=== PATIENT | female | born 1955 | race Caucasian/White ===

== ENCOUNTER 2017-08-10 10:42 | Emergency (ER) | payer BC ==
[2017-08-10 10:56] VITALS: BMI 33.5
[2017-08-10] MEDS ORDERED: NS 1000 ML 1,000 ML ONE ×2 (11:24→13:39)
--- NOTE | 2017-08-10 11:37 | DR.NAUSEAF ---
HPI - Time Seen Time seen: 11:35 - Primary Care Physician Primary Care Physician: TENNILLE MEDINA - Complaints Chief Complaint Doctors Comments: Patient admits to one episode of vomiting on yesterday and several of diarrhea. Patient has not been on antibiotics, no recent travels. Chief Complaint:: PT C/O N/V/D SINCE YESTERDAY AND SHE THINKS IT MAY BE A BLOCKAGE".. - Source History Provided: Patient - Mode of Arrival Mode of Arrival: Ambulatory - Timing Onset of Chief Complaint: 08/09/17 PMH - PMH Past Medical History: Yes Past Medical History: Angina, Anxiety, Arthritis, GERD, Hypertension, Hypothyroidism, PUD, Seizures Past Surgical History: Yes Surgical History: Cholecystectomy, Ortho Surgery, Tonsillectomy - Family History History of Family Medical Conditions: Yes Family Medical History: Cancer, [place], Coronary Artery Disease, Heart Failure, Sudden Cardiac , Hypertension - Social History Does patient currently use any type of tobacco product: No Have you used tobacco products in the last 12 months: No Type of Tobacco Use: None Does any household member use tobacco: No Alcohol Use: None Do you use any recreational Drugs:: No Lives With: Family Lives Where: Home - infectious screening In the last 2 months have you had wt loss of >10#?: NO Have you had fever, night sweats or hemotysis?: No Have you traveled outside the country in the last 6 months?: No Isolation: Standard ROS - Review of Systems Constitutional: negative: Diaphoresis Eyes: No Symptoms Reported ENTM: No Symptoms Reported Respiratoy: No Symptoms Reported Cardiovascular: No Symptoms Reported Gastrointestinal/Abdominal: Abdominal Pain, Diarrhea, Nausea, Vomiting Genitourinary: No Symptoms Reported Neurological: No Symptoms Reported Musculoskeletal: No Symptoms Reported Integumentary: No Symptoms Reported Hematologic/Lymphatic: No Symptoms Reported Endocrine: No Symptoms Reported Psychiatric: No Symptoms Reported All Other Systems: Reviewed and Negative PE - Vital Signs Vitals: Temperature 97.2 F Pulse Rate 77 Respiratory Rate 18 Blood Pressure [Left Arm] 127/59 Blood Pressure [Right Arm] 146/70 Blood Pressure 136/79 O2 Sat by Pulse Oximetry 97 - General Limitations: No Limitations General Appearance: Alert, In No Apparent Distress - Head Head Exam: Normal Inspection, Atraumatic - Eyes Eye exam: Normal Appearance, PERRL, EOMI - ENT ENT Exam: Normal Exam, Mucous Membranes Dry, Other (cap refill prolong) - Neck Neck Exam: Normal Inspection, Full ROM - Chest Chest Inspection: Normal Inspection, Symmetric Chest Wall Rise - Respiratory Respiratory Exam: Normal Lung Sounds Bilat Respiratory Exam: Bilateral Clear to Auscultation - Cardiovascular Cardiovascular Exam: Regular Rate, Normal Rhythm - Abdominal Exam Abdominal Exam: Normal Inspection Abdominal Tenderness: negative: RUQ, RLQ, LUQ, LLQ, Epigastrium, Suprapubic, Diffuse, Mild, Moderate, Severe, Other - Rectal Rectal Exam: Deferred - External Exam: Female: Deferred : Speculum Exam (Female): Deferred : Bimanual Exam (female): Normal Bimanual exam - Extremities Extremities Exam: Normal Inspection, Full ROM - Back Back Exam: Normal Inspection - Neurologic Neurological Exam: Alert, Oriented X3, CN II-XII Intact - Psychiatric Psychiatric Exam: Normal Affect, Normal Mood - Skin Skin Exam: Warm, Dry, Intact Course - Reevaluation 1st: Improved - Education/Counseling Educated On: Treatment, Diagnosis, Prognosis, Needs for Follow Up ROR - Labs Reviewed Result Diagrams: 08/10/17 11:30 08/10/17 11:30 Laboratory: WBC 5.5 X10^3/uL (3.6-10.0) 08/10/17 11:30 RBC 4.61 X10^6/uL (3.5-5.4) 08/10/17 11:30 Hgb 15.0 g/dL (12.0-16.0) 08/10/17 11:30 Hct 43.1 % (36.0-47.0) 08/10/17 11:30 MCV 93.5 fL (80.0-100.0) 08/10/17 11:30 MCH 32.6 pg (27.0-34.0) 08/10/17 11:30 MCHC 34.8 g/dL (33.0-35.0) 08/10/17 11:30 RDW 13.4 % (11.6-16.5) 08/10/17 11:30 Plt Count 205 X10^3/uL (150.0-450.0) 08/10/17 11:30 MPV 8.8 fL (7.4-11.0) 08/10/17 11:30 Neut % 63.9 % (42.0-75.0) 08/10/17 11:30 Lymph % 19.2 % (21.0-51.0) L 08/10/17 11:30 [place] % 12.1 % (0.0-13.0) 08/10/17 11:30 Eos % 4.4 % (0.9-2.9) H 08/10/17 11:30 Baso % 0.4 % (0.2-1.0) 08/10/17 11:30 Neut # 3.5 x10^3/uL (2.2-4.8) 08/10/17 11:30 Lymph # 1.1 X10^3/uL (1.3-2.9) L 08/10/17 11:30 [place] # 0.7 x10^3/uL (0.3-0.8) 08/10/17 11:30 Eos # 0.2 x10^3/uL (0.0-0.2) 08/10/17 11:30 Baso # 0.0 X10^3/uL (0.0-0.1) 08/10/17 11:30 Absolute Nucleated RBC 0.0 /100WBC 08/10/17 11:30 Sodium 135 mmol/L (136-145) L 08/10/17 11:30 Corrected Sodium TNP 08/10/17 11:30 Potassium 3.2 mmol/L (3.5-5.1) L 08/10/17 11:30 Chloride 102 mmol/L (98-107) 08/10/17 11:30 Carbon Dioxide 24.4 mmol/L (21-32) 08/10/17 11:30 BUN 24 mg/dL (7-18) H 08/10/17 11:30 Creatinine 1.28 mg/dL (0.55-1.02) H 08/10/17 11:30 Est GFR (MDRD) Af Amer 54 (>60) L 08/10/17 11:30 Est GFR (MDRD) Non-Af 45 (>60) L 08/10/17 11:30 Glucose 96 mg/dL (65-99) 08/10/17 11:30 Calcium 8.7 mg/dL (8.5-10.1) 08/10/17 11:30 Corrected Calcium TNP 08/10/17 11:30 Total Bilirubin 0.80 mg/dL (0.2-1.0) 08/10/17 11:30 AST 20 Units/L (15-37) 08/10/17 11:30 ALT 24 Units/L (12-78) 08/10/17 11:30 Alkaline Phosphatase 97 Units/L (46-116) 08/10/17 11:30 Total Protein 7.6 g/dL (6.4-8.2) 08/10/17 11:30 Albumin 3.6 g/dL (3.4-5.0) 08/10/17 11:30 Globulin 4.0 g/dL (2.5-4.5) 08/10/17 11:30 Albumin/Globulin Ratio 0.9 Ratio (1.1-2.1) L 08/10/17 11:30 Specimen Type Clean catch urine 08/10/17 12:30 Urine Color Yellow (YELLOW) 08/10/17 12:30 Urine Appearance Clear (CLEAR) 08/10/17 12:30 Urine pH 6.5 (5.0 - 8.0) 08/10/17 12:30 Ur Specific [place] 1.005 (1.000-1.030) 08/10/17 12:30 Urine Protein Negative (NEGATIVE) 08/10/17 12:30 Urine Glucose (UA) Negative (NEGATIVE) 08/10/17 12:30 Urine Ketones Negative (NEGATIVE) 08/10/17 12:30 Urine Occult Blood Negative (NEGATIVE) 08/10/17 12:30 Urine Nitrite Negative (NEGATIVE) 08/10/17 12:30 Urine Bilirubin Negative (NEGATIVE) 08/10/17 12:30 Urine Urobilinogen Normal (NORMAL) 08/10/17 12:30 Ur Leukocyte Esterase Negative (NEGATIVE) 08/10/17 12:30 Urine RBC Rare /HPF (NEGATIVE) 08/10/17 12:30 Urine WBC Rare /HPF (NEGATIVE) 08/10/17 12:30 Ur Squamous Epith Cells Few /HPF (NEGATIVE) 08/10/17 12:30 Ur Renal Epithelial Cell Rare /HPF (NEGATIVE) 08/10/17 12:30 Amorphous Sediment Trace /HPF (NEGATIVE) 08/10/17 12:30 Urine Bacteria Negative /HPF (NEGATIVE) 08/10/17 12:30 Ur Culture Indicated? No/not indicated 08/10/17 12:30 - XRAY XRAY Interpreted by: Radiologist (Acute Abd Series: Cardiomediastinal silhouette is normal in size. No focal consolidations, pleural effusions or pneumothorax. Osseous structures are without acute abormality. Flat and Upright views of the abdomen demonstrates a pattern most consistent with enteritis. No evidience of obstruction. No free air. No abnormal calcifications or abnormal soft tissue shadows. No acute bony abnormalities. Impression: No acute cardiopulmonary disease. Bowel gas pattern most consistent with enteritis.) - Diagnosis Discharge Problem: Diarrhea in adult patient, Enteritis, Hypokalemia - Discharge Plan Condition: Stable - Follow ups/Referrals Follow ups/Referrals: Son Soto [Primary Care Provider] - 3 days - Instructions
[2017-08-10] MEDS ORDERED: NS 1000 ML 1,000 ML IV ONE ×2 (11:38→13:47)
[2017-08-10 11:54] LABS: BASOPHILS % (AUTO) 0.4 % (0.2-1.0); EOSINOPHILS # (AUTO) 0.2 x10^3/uL (0.0-0.2); EOSINOPHILS % (AUTO) 4.4 % (0.9-2.9); HEMATOCRIT 43.1 % (36.0-47.0); LYMPHOCYTES # (AUTO) 1.1 X10^3/uL (1.3-2.9); LYMPHOCYTES % (AUTO) 19.2 % (21.0-51.0); MEAN CORPUSCULAR HEMOGLOBIN 32.6 pg (27.0-34.0); MEAN CORPUSCULAR HGB CONC 34.8 g/dL (33.0-35.0); MEAN CORPUSCULAR VOLUME 93.5 fL (80.0-100.0); MEAN PLATELET VOLUME 8.8 fL (7.4-11.0); MONOCYTES # (AUTO) 0.7 x10^3/uL (0.3-0.8); MONOCYTES % (AUTO) 12.1 % (0.0-13.0); NEUTROPHILS # (AUTO) 3.5 x10^3/uL (2.2-4.8); NEUTROPHILS % (AUTO) 63.9 % (42.0-75.0); PLATELET COUNT 205 X10^3/uL (150.0-450.0); RED BLOOD COUNT 4.61 X10^6/uL (3.5-5.4); RED CELL DISTRIBUTION WIDTH 13.4 % (11.6-16.5); WHITE BLOOD COUNT 5.5 X10^3/uL (3.6-10.0)
[2017-08-10 12:05] LABS: ALANINE AMINOTRANSFERASE 24 Units/L (12-78); ALBUMIN 3.6 g/dL (3.4-5.0); ALKALINE PHOSPHATASE 97 Units/L (46-116); ASPARTATE AMINO TRANSFERASE 20 Units/L (15-37); BLOOD UREA NITROGEN 24 mg/dL (7-18); CALCIUM 8.7 mg/dL (8.5-10.1); CARBON DIOXIDE 24.4 mmol/L (21-32); CHLORIDE 102 mmol/L (98-107); CREATININE 1.28 mg/dL (0.55-1.02); SODIUM 135 mmol/L (136-145); TOTAL PROTEIN 7.6 g/dL (6.4-8.2); eGFR BLACK RACES 54 (>60); eGFR NON BLACK RACES 45 (>60)
[2017-08-10] MEDS ORDERED: K-LYTE EFFERVESCENT ONE (12:40)
[2017-08-10] MEDS ORDERED: K-LYTE EFFERVESCENT PO SCH (13:00)
[2017-08-10 13:06] LABS: APPEARANCE,URINE CLEAR (CLEAR); COLOR,URINE YELLOW (YELLOW); GLUCOSE, URINE NEGATIVE (NEGATIVE); PH,URINE 6.5 (5.0 - 8.0); PROTEIN,URINE NEGATIVE (NEGATIVE)
[2017-08-10 13:07] LABS: BILIRUBIN,URINE NEGATIVE (NEGATIVE); BLOOD/HEMOGLOBIN,URINE NEGATIVE (NEGATIVE); KETONES,URINE NEGATIVE (NEGATIVE); LEUKOCYTE ESTERASE ,URINE NEGATIVE (NEGATIVE); NITRITES,URINE NEGATIVE (NEGATIVE); UROBILINOGEN,URINE NORMAL (NORMAL)
[2017-08-10 13:19] LABS: AMORPHOUS SEDIMENT,UR TRACE /HPF (NEGATIVE); BACTERIA,URINE NEGATIVE /HPF (NEGATIVE); RBC,URINE RARE /HPF (NEGATIVE); RENAL EPITHELIAL CELLS,URINE RARE /HPF (NEGATIVE); SQUAMOUS EPITHELIAL CELL,UR FEW /HPF (NEGATIVE)
--- NOTE | 2017-08-10 13:22 | RAD ---
HISTORY: Vomiting and diarrhea Study: Frontal view of the chest, flat and upright views of the abdomen Comparison: None Findings: Cardiomediastinal silhouette is normal in size. No focal consolidations, pleural effusions or pneumot horax. Osseous structures are without acute abnormality. Flat and upright views of the abdomen demonstrates a pattern most consistent with enteritis. No evide nce of obstruction. No free air. No abnormal calcifications or abnormal soft tissue shadows. No acu te bony abnormalities. IMPRESSION: 1. No acute cardiopulmonary disease. 2. Bowel gas pattern most consistent with enteritis. Reported By:
[2017-08-10 14:08] VITALS: BP 126/75
[2017-08-10 14:12] LABS: STOOL FOR WBC NEGATIVE (NEGATIVE)
== END 2017-08-10 14:40 | disposition home or self-care (01) ==
LOC: ER 10:51
DX: K52.89 Other specified noninfective gastroenteritis and colitis (principal); R19.7 Diarrhea, unspecified; E87.6 Hypokalemia
CPT/HCPCS: 36415; 74022; 80053; 81001; 83630; 85025; 96365; 96367; 99283; A4222

== ENCOUNTER 2021-03-06 11:56 | Inpatient (IN) ==
[2021-03-06] MEDS ORDERED: NS 500 ML IV 500 ML IV ONE (12:58)
[2021-03-06 13:35] LABS: BASOPHILS % (AUTO) 0.4 % (0.2-1.0); EOSINOPHILS % (AUTO) 0.1 % (0.9-2.9); HEMATOCRIT 37.7 % (36.0-47.0); HEMOGLOBIN 13.4 g/dL (12.0-16.0); LYMPHOCYTES # (AUTO) 0.6 X10^3/uL (1.3-2.9); LYMPHOCYTES % (AUTO) 10.1 % (21.0-51.0); MEAN CORPUSCULAR HEMOGLOBIN 32.7 pg (27.0-34.0); MEAN CORPUSCULAR HGB CONC 35.4 g/dL (33.0-35.0); MEAN CORPUSCULAR VOLUME 92.5 fL (80.0-100.0); MEAN PLATELET VOLUME 8.3 fL (7.4-11.0); MONOCYTES # (AUTO) 0.5 x10^3/uL (0.3-0.8); MONOCYTES % (AUTO) 8.2 % (0.0-13.0); NEUTROPHILS # (AUTO) 5.1 x10^3/uL (2.2-4.8); NEUTROPHILS % (AUTO) 81.2 % (42.0-75.0); PLATELET COUNT 207 X10^3/uL (150.0-450.0); RED BLOOD COUNT 4.08 X10^6/uL (3.5-5.4); RED CELL DISTRIBUTION WIDTH 13.3 % (11.6-16.5); WHITE BLOOD COUNT 6.3 X10^3/uL (3.6-10.0)
[2021-03-06 13:47] LABS: ALBUMIN 2.9 g/dL (3.4-5.0); CALCIUM 8.5 mg/dL (8.5-10.1); CARBON DIOXIDE 21.5 mmol/L (21-32); COR CA(FOR HYPOALB) 9.4 mg/dL (8.5-10.1); CREATININE 2.37 mg/dL (0.55-1.02); MAGNESIUM 1.9 mg/dL (1.7-2.9); TOTAL PROTEIN 7.1 g/dL (6.4-8.2)
[2021-03-06] MEDS ORDERED: POTASSIUM CHL 40 MEQ/NS 0.45% 500 ML IV PRN (13:51)
[2021-03-06] MEDS ORDERED: KLOR-CON PO PRN (13:51)
[2021-03-06] MEDS ORDERED: POTASSIUM CHL 60 MEQ/NS 0.45% 500 ML IV PRN (13:51)
[2021-03-06] MEDS ORDERED: K-DUR TAB 20 MEQ PO PRN (13:51)
[2021-03-06] MEDS ORDERED: K-RIDER 10 MEQ/NS 100 ML 10 MEQ/100 ML BAG IV PRN (13:51)
[2021-03-06] MEDS ORDERED: MAGNESIUM SULFATE 1 GRAM/100 mL PREMIX 1 GM/100 ML BAG IV PRN (13:51)
[2021-03-06] MEDS ORDERED: MICRO K EXTEN CAP 10 MEQ PO PRN (13:51)
[2021-03-06] MEDS: NS 1000 ML 1,000 ML IV SCH ×2 (14:32→22:10)
[2021-03-06 14:33] LABS: CRYPTOSPORIDIUM PARVUM ANTIGEN NEGATIVE (NEGATIVE); GIARDIA LAMBLIA ANTIGEN NEGATIVE (NEGATIVE)
[2021-03-06] MEDS: POTASSIUM CHLORIDE LIQ 20 MEQ UDC PO PRN (15:41)
[2021-03-06] MEDS: BUTT CREAM (COMPOUND) TOP PRN (20:37)
[2021-03-06] MEDS ORDERED: TYLENOL 325 MG TAB PO PRN (20:38)
[2021-03-07] MEDS: NS 1000 ML 1,000 ML IV SCH ×2 (05:05→13:45)
[2021-03-07 05:18] LABS: BASOPHILS % (AUTO) 0.7 % (0.2-1.0); EOSINOPHILS % (AUTO) 0.3 % (0.9-2.9); HEMATOCRIT 34.3 % (36.0-47.0); HEMOGLOBIN 12.1 g/dL (12.0-16.0); LYMPHOCYTES # (AUTO) 0.9 X10^3/uL (1.3-2.9); LYMPHOCYTES % (AUTO) 15.7 % (21.0-51.0); MEAN CORPUSCULAR HEMOGLOBIN 32.7 pg (27.0-34.0); MEAN CORPUSCULAR HGB CONC 35.1 g/dL (33.0-35.0); MEAN CORPUSCULAR VOLUME 93.1 fL (80.0-100.0); MEAN PLATELET VOLUME 9.1 fL (7.4-11.0); MONOCYTES # (AUTO) 0.8 x10^3/uL (0.3-0.8); MONOCYTES % (AUTO) 13.2 % (0.0-13.0); NEUTROPHILS # (AUTO) 4.2 x10^3/uL (2.2-4.8); NEUTROPHILS % (AUTO) 70.1 % (42.0-75.0); PLATELET COUNT 194 X10^3/uL (150.0-450.0); RED BLOOD COUNT 3.69 X10^6/uL (3.5-5.4); RED CELL DISTRIBUTION WIDTH 13.4 % (11.6-16.5)
[2021-03-07 05:24] LABS: ALANINE AMINOTRANSFERASE 22 Units/L (12-78); ALBUMIN 2.3 g/dL (3.4-5.0); ALKALINE PHOSPHATASE 59 Units/L (46-116); ASPARTATE AMINO TRANSFERASE 29 Units/L (15-37); BLOOD UREA NITROGEN 30 mg/dL (7-18); CALCIUM 8.3 mg/dL (8.5-10.1); CHLORIDE 106 mmol/L (98-107); COR CA(FOR HYPOALB) 9.7 mg/dL (8.5-10.1); CREATININE 1.51 mg/dL (0.55-1.02); SODIUM 138 mmol/L (136-145); eGFR NON BLACK RACES 37 (>60)
[2021-03-07] MEDS: BUTT CREAM (COMPOUND) TOP PRN (09:50)
[2021-03-07] MEDS ORDERED: LOMOTIL PO PRN (10:26)
[2021-03-07] MEDS ORDERED: NS 1000 ML 0 ML ONE (13:48)
[2021-03-07] MEDS: NS + KCL 20 MEQ/L 1,000 ML IV SCH ×2 (13:50→23:23)
[2021-03-07 16:04] VITALS: BMI 30.4
--- NOTE | 2021-03-07 18:29 | DR.CONSULT ---
Consult - Consultation for Day of: Date: 03/07/21 - Chief Complaint Chief Complaint: intractable nausea, vomiting adn diarrhea - History of Present Illness History of Present Illness: Patient referred for intractable nausea, vomiting and diarrhea. Patient with complaints of dyspepsia, nausea, vomiting last on friday, abdominal pain, and diarrhea for the last 5 days. Last colon 3 years ago in [place] with polyps, unsure of last EGD. Patient noted with diffuse abdominal tenderness. Stool positive for C-Diff and blood, Hgb 12.1, Hct 34.3, Plt 194, BUN 30, Creatinien 1.5, T. Bili 0.7, AST 29, aLT 22, ALP 59 - Past Medical History Past Medical History: Angina, Anxiety, Arthritis, GERD, Hypertension, Hypothyroidism, PUD, Seizures Additional Medical History: Hepatitis C, Diverticulosis, Constipation, Urinary Tract Infections - Past Surgical History Surgical History: Cholecystectomy, Ortho Surgery, Tonsillectomy - Family History Family Medical History: Cancer, [place], Coronary Artery Disease, Heart Failure, Sudden Cardiac , Hypertension - Social History Does any household member use tobacco: No Alcohol Use: None Drug Use: None - Medications Home Medications: meperidine [From Demerol] Adverse Reaction (Verified 11/06/20 08:09) CONFUSION CONTINUE taking the following medications hydrochlorothiazide 12.5 mg PO DAILY 03/06/21 [History] levothyroxine 25 mcg PO DAILY 03/06/21 [History] losartan 50 mg PO DAILY 03/06/21 [History] rabeprazole 20 mg PO BID 03/06/21 [History] temazepam 30 mg PO HS 03/06/21 [History] tizanidine 4 mg PO HS 03/06/21 [History] - Review of Systems Gastrointestinal: See HPI, Nausea, Vomiting, Abdominal Pain, Diarrhea. denies: Constipation, Melena, Hematochezia - Physical Exam Vital Signs: Temperature 98.8 F Pulse Rate [Left Brachial] 60 Respiratory Rate 20 Blood Pressure [Left Arm] 143/67 Blood Pressure [Right Arm] 126/75 Blood Pressure 157/73 O2 Sat by Pulse Oximetry 99 Oriented: Normal Eyes: Normal Ear: Normal Nose: Normal Throat: Normal Respiratory: Clear Throughout Cardiovascular: Normal Auscultation: Bowel Sounds: Normal Palpation: Normal, Other (no distention). negative: Spleen Enlarged, Liver Enlarged, Mass Pulsatile Tenderness: Diffuse Skin: Normal Musculoskeletal: Normal Psychiatric: Normal Mood Description: Calm, Appropriate Affect: Normal Speech Pattern: Clear, Appropriate - Plan Plan: Assessment. 1. Nausea, vomiting, abdominal pain. 2. C-Diff Colitis. Plan. 1. Zofran PRN, EGD in am. 2. Flagyl 500mg PO TID. Plan reviewed with Dr. Burgos - Allergies Allergies/Adverse Reactions: Allergies Allergy/AdvReac Type Severity Reaction Status Date / Time meperidine [From Demerol] AdvReac CONFUSION Verified 11/06/20 08:09
--- NOTE | 2021-03-07 18:55 | DR.H&P ---
H&P - History & Physical for Day of: H&P Date: 03/06/21 - Chief Complaint Chief Complaint: DIARRHEA, NAUSEA, VOMITING - History of Present Illness History of Present Illness: IS A 65 YEAR OLD PATIENT OF OURS WHO PRESENTED TO THE OFFICE WITH COMPLAINTS OF DIARRHEA, NAUSEA, AND VOMITING. SHE REPORTS THAT SYMPTOMS STARTED 5-6 DAYS AGO AND HAVE PROGRESSIVELY GOTTEN WORSE. SHE REPORTS HAVING 8-10 BOWEL MOVEMENTS PER DAY. SHE ADMITS TO ABDOMINAL CRAMPING AND FEVER. HER PMH INCLUDES: HTN, HEPATITIS, HYPOTHYROIDISM, GERD. DECISION WAS MADE TO ADMIT PATIENT TO THE HOSPITAL FOR FURTHER EVALUATION AND TREATMENT OF DEHYDRATION, GASTRITIS, AND INTRACTABLE DIARRHEA. ON ARRIVAL TO THE HOSPITAL, VITALS WERE 99.1-69-18-95%-102/51. LABS WERE OBTAINED. ABNORMAL LAB VALUES INCLUDE THE FOLLOWING: POTASSIUM 2.8, BUN 35, CREATININE 2.37, GLUCOSE 114, ALBUMIN 2.9, AMYLASE 18, LIPASE 50. STOOL STUDIES WERE POSITIVE FOR OCCULT BLOOD, WBC. C.DIFF TOXIN B GENE WAS POSITIVE, BUT NEGATIVE FOR ACUTE INFECTION. STOOL CULTURE IS PENDING. SHE WAS GIVEN A NORMAL SALINE BOLUS X 2 LITERS, THEN STARTED ON NS AT 100 ML/HR, LOMOTIL 1 TAB PO QID PRN, THE POTASSIUM AND MAGNESIUM PROTOCOLS, TYLENOL 650MG PO Q6H PRN. WE WILL REVIEW HER HOME MEDICATIONS AND RESUME APPROPRIATE. WE WILL CONSULT WITH , POLISHER AND BUFFER FOR POSSIBLE ENDOSCOPY. OTHERWISE, WE PLAN TO FOLLOW UP WITH AM LABS AND CONTINUE TO MONITOR. TIME SPENT ON CLINICAL ASSESSMENT, REVIEWING LABS AND IMAGING, DECISION MAKING, AND DOCUMENTATION GREATER THAN 75 MINS. - Past Medical History Past Medical History: Angina, Anxiety, Arthritis, GERD, Hypertension, Hypothyroidism, PUD, Seizures Additional Medical History: Hepatitis C, Diverticulosis, Constipation, Urinary Tract Infections - Past Surgical History Surgical History: Cholecystectomy, Ortho Surgery, Tonsillectomy - Family History Family Medical History: Cancer, [place], Coronary Artery Disease, Heart Failure, Sudden Cardiac , Hypertension - Social History Does any household member use tobacco: No Alcohol Use: None Drug Use: None - Medications Home Medications: meperidine [From Demerol] Adverse Reaction (Verified 11/06/20 08:09) CONFUSION CONTINUE taking the following medications hydrochlorothiazide 12.5 mg PO DAILY 03/06/21 [History] levothyroxine 25 mcg PO DAILY 03/06/21 [History] losartan 50 mg PO DAILY 03/06/21 [History] rabeprazole 20 mg PO BID 03/06/21 [History] temazepam 30 mg PO HS 03/06/21 [History] tizanidine 4 mg PO HS 03/06/21 [History] - Physical Exam Vital Signs: Temperature 98.8 F Pulse Rate [Left Brachial] 60 Respiratory Rate 20 Blood Pressure [Left Arm] 143/67 Blood Pressure [Right Arm] 126/75 Blood Pressure 157/73 O2 Sat by Pulse Oximetry 99 Oriented: Normal - Allergies Allergies/Adverse Reactions: Allergies Allergy/AdvReac Type Severity Reaction Status Date / Time meperidine [From Demerol] AdvReac CONFUSION Verified 11/06/20 08:09
[2021-03-07] MEDS: FLAGYL TAB 500 MG PO SCH (21:21)
[2021-03-08] MEDS: NS + KCL 20 MEQ/L 1,000 ML IV SCH ×3 (03:58→20:30)
[2021-03-08] MEDS: FLAGYL TAB 500 MG PO SCH ×3 (05:20→21:33)
[2021-03-08 06:15] LABS: BASOPHILS % (AUTO) 0.5 % (0.2-1.0); EOSINOPHILS # (AUTO) 0.1 x10^3/uL (0.0-0.2); EOSINOPHILS % (AUTO) 1.1 % (0.9-2.9); HEMOGLOBIN 12.1 g/dL (12.0-16.0); LYMPHOCYTES # (AUTO) 0.9 X10^3/uL (1.3-2.9); MEAN CORPUSCULAR HEMOGLOBIN 33.2 pg (27.0-34.0); MEAN CORPUSCULAR HGB CONC 35.5 g/dL (33.0-35.0); MEAN CORPUSCULAR VOLUME 93.5 fL (80.0-100.0); MEAN PLATELET VOLUME 8.9 fL (7.4-11.0); MONOCYTES # (AUTO) 1.1 x10^3/uL (0.3-0.8); MONOCYTES % (AUTO) 17.5 % (0.0-13.0); NEUTROPHILS # (AUTO) 4.3 x10^3/uL (2.2-4.8); NEUTROPHILS % (AUTO) 66.9 % (42.0-75.0); PLATELET COUNT 194 X10^3/uL (150.0-450.0); RED BLOOD COUNT 3.63 X10^6/uL (3.5-5.4); RED CELL DISTRIBUTION WIDTH 13.3 % (11.6-16.5); WHITE BLOOD COUNT 6.4 X10^3/uL (3.6-10.0)
[2021-03-08 06:55] LABS: ALBUMIN 2.3 g/dL (3.4-5.0); ALKALINE PHOSPHATASE 74 Units/L (46-116); ASPARTATE AMINO TRANSFERASE 66 Units/L (15-37); BLOOD UREA NITROGEN 15 mg/dL (7-18); CALCIUM 8.2 mg/dL (8.5-10.1); CARBON DIOXIDE 19.5 mmol/L (21-32); CHLORIDE 109 mmol/L (98-107); COR CA(FOR HYPOALB) 9.6 mg/dL (8.5-10.1); CREATININE 1.05 mg/dL (0.55-1.02); SODIUM 139 mmol/L (136-145); TOTAL PROTEIN 5.9 g/dL (6.4-8.2); eGFR NON BLACK RACES 56 (>60)
[2021-03-08 07:10] LABS: ALANINE AMINOTRANSFERASE 46 Units/L (12-78)
[2021-03-08] MEDS: VSL#3 PO SCH (11:16)
[2021-03-08] MEDS: ROCEPHIN VIAL 1 GRAM 1 G in NS 100 ML IV + SPIKE MINIBAG* 100 ML IV SCH (11:16)
[2021-03-08] MEDS ORDERED: XANAX PO PRN (17:17)
--- NOTE | 2021-03-08 19:51 | PCM.PROG ---
Progress Note - Progress Note for Day of Date of Exam: 03/08/21 - Subjective Subjective: the patient is a 65-year-old white female who was admitted on 03/06/21 secondary to dehydration and diarrhea. States the diarrhea started on Friday. Patient continues to have some nausea. Denies any vomiting. Patient has C Diff toxin history. Is currently on Flagyl. Salmonella screening is positive. Rocephin added. Patient has received supplementation for hypokalemia. Rectal tube is intact. Patient is scheduled for EGD today. Patient does admit to feeling weak with no energy. - Past Medical Family Social History Past Med/Fam/Surg Hx: No changes since H&P Allergies: Allergies meperidine [From Demerol] Adverse Reaction (Verified 11/06/20 08:09) CONFUSION patient states she becomes combative - Review of Systems ROS: No change since H&P - Vital Signs and I&O's Vital Signs: Temperature 97.6 F Pulse Rate [Left Brachial] 61 Respiratory Rate 20 Blood Pressure [Left Arm] 108/53 Blood Pressure [Right Arm] 126/75 Blood Pressure 157/73 O2 Sat by Pulse Oximetry 99 Intake and Output: Intake & Output 03/05/21 03/06/21 03/07/21 03/08/21 23:59 23:59 23:59 23:59 Intake Total 1080 / 1080 3543 / 3543 1060 / 1060 Output Total 1500 / 1500 1200 / 1200 Balance 1080 / 1080 2043 / 2043 -140 / -140 - Physical Exam Oriented: Normal Eyes: Normal Ear: Normal Nose: Normal Throat: Normal Cardiovascular: Normal : Normal Auscultation: Bowel Sounds: Increased Palpation: Normal Tenderness: Diffuse, Other (rectal tube with green liquid) Skin: Normal Musculoskeletal: Normal Psychiatric: Normal Mood Description: Calm, Appropriate Affect: Normal Speech Pattern: Clear, Appropriate - Laboratory and Diagnostics Result Diagrams: 03/08/21 04:40 03/08/21 04:40 Labs: 03/06/21 13:06 Stool Stool Culture - Final Salmonella Species 03/06/21 13:06 Stool - Final Laboratory WBC 6.4 X10^3/uL (3.6-10.0) 03/08/21 04:40 RBC 3.63 X10^6/uL (3.5-5.4) 03/08/21 04:40 Hgb 12.1 g/dL (12.0-16.0) 03/08/21 04:40 Hct 34.0 % (36.0-47.0) L 03/08/21 04:40 MCV 93.5 fL (80.0-100.0) 03/08/21 04:40 MCH 33.2 pg (27.0-34.0) 03/08/21 04:40 MCHC 35.5 g/dL (33.0-35.0) H 03/08/21 04:40 RDW 13.3 % (11.6-16.5) 03/08/21 04:40 Plt Count 194 X10^3/uL (150.0-450.0) 03/08/21 04:40 MPV 8.9 fL (7.4-11.0) 03/08/21 04:40 Neut % (Auto) 66.9 % (42.0-75.0) 03/08/21 04:40 Lymph % (Auto) 14.0 % (21.0-51.0) L 03/08/21 04:40 [place] % (Auto) 17.5 % (0.0-13.0) H 03/08/21 04:40 Eos % (Auto) 1.1 % (0.9-2.9) 03/08/21 04:40 Baso % (Auto) 0.5 % (0.2-1.0) 03/08/21 04:40 Neut # (Auto) 4.3 x10^3/uL (2.2-4.8) 03/08/21 04:40 Lymph # (Auto) 0.9 X10^3/uL (1.3-2.9) L 03/08/21 04:40 [place] # (Auto) 1.1 x10^3/uL (0.3-0.8) H 03/08/21 04:40 Eos # (Auto) 0.1 x10^3/uL (0.0-0.2) 03/08/21 04:40 Baso # (Auto) 0.0 X10^3/uL (0.0-0.1) 03/08/21 04:40 Absolute Nucleated RBC 0.0 /100WBC 03/08/21 04:40 ESR 14 MM/HOUR (0-20) 03/07/21 14:45 Sodium 139 mmol/L (136-145) 03/08/21 04:40 Corrected Sodium TNP 03/08/21 04:40 Potassium 3.2 mmol/L (3.5-5.1) L 03/08/21 04:40 Chloride 109 mmol/L (98-107) H 03/08/21 04:40 Carbon Dioxide 19.5 mmol/L (21-32) L 03/08/21 04:40 BUN 15 mg/dL (7-18) 03/08/21 04:40 Creatinine 1.05 mg/dL (0.55-1.02) H 03/08/21 04:40 Est GFR (MDRD) Af Amer > 60 (>60) 03/08/21 04:40 Est GFR (MDRD) Non-Af 56 (>60) L 03/08/21 04:40 Glucose 95 mg/dL (65-99) 03/08/21 04:40 POC Glucose (mg/dL) 105 mg/dL (65-99) H 03/07/21 11:31 Calcium 8.2 mg/dL (8.5-10.1) L 03/08/21 04:40 Corrected Calcium 9.6 mg/dL (8.5-10.1) 03/08/21 04:40 Magnesium 2.0 mg/dL (1.7-2.9) 03/06/21 14:20 Total Bilirubin 0.80 mg/dL (0.2-1.0) 03/08/21 04:40 AST 66 Units/L (15-37) H 03/08/21 04:40 ALT 46 Units/L (12-78) 03/08/21 04:40 Alkaline Phosphatase 74 Units/L (46-116) 03/08/21 04:40 C-Reactive Protein 122.40 mg/L (0-3.0) H 03/07/21 14:45 Total Protein 5.9 g/dL (6.4-8.2) L 03/08/21 04:40 Albumin 2.3 g/dL (3.4-5.0) L 03/08/21 04:40 Globulin 3.6 g/dL (2.5-4.5) 03/08/21 04:40 Albumin/Globulin Ratio 0.6 Ratio (1.1-2.1) L 03/08/21 04:40 Amylase 18 Units/L (25-115) L 03/06/21 13:23 Lipase 50 Units/L (73-393) L 03/06/21 13:23 Stool Description 6 g bro/green loose 03/06/21 13:06 Stool Description Fob tube 03/06/21 13:06 Stl Occult Blood (IFOB) Positive (NEGATIVE) A 03/06/21 13:06 Stool for White Cells Positive (NEGATIVE) A 03/06/21 13:06 Stl C. diff Tox B Gene Positive (NEGATIVE) A 03/06/21 13:06 Stl C. diff [id number] Presumptive negative (NEGATIVE) 03/06/21 13:06 C. difficile Toxin A&B Negative (NEGATIVE) 03/06/21 13:06 Cryptosporid parvum Ag Negative (NEGATIVE) 03/06/21 13:06 Giardia lamblia Ag Negative (NEGATIVE) 03/06/21 13:06 - Plan (1) Salmonella Status: Acute Plan: Rocephin IV (2) Dehydration Status: Acute Plan: gentle IV hydration (3) Diarrhea in adult patient Status: Acute Plan: rectal tube and anti-diarrheals (4) Hypokalemia Status: Acute Plan: supplement as needed
[2021-03-09 05:09] LABS: BASOPHILS % (AUTO) 0.4 % (0.2-1.0); EOSINOPHILS # (AUTO) 0.1 x10^3/uL (0.0-0.2); EOSINOPHILS % (AUTO) 2.1 % (0.9-2.9); HEMATOCRIT 31.4 % (36.0-47.0); HEMOGLOBIN 11.2 g/dL (12.0-16.0); LYMPHOCYTES # (AUTO) 1.2 X10^3/uL (1.3-2.9); LYMPHOCYTES % (AUTO) 21.4 % (21.0-51.0); MEAN CORPUSCULAR HEMOGLOBIN 33.3 pg (27.0-34.0); MEAN CORPUSCULAR HGB CONC 35.6 g/dL (33.0-35.0); MEAN CORPUSCULAR VOLUME 93.4 fL (80.0-100.0); MONOCYTES # (AUTO) 0.8 x10^3/uL (0.3-0.8); MONOCYTES % (AUTO) 14.9 % (0.0-13.0); NEUTROPHILS # (AUTO) 3.3 x10^3/uL (2.2-4.8); NEUTROPHILS % (AUTO) 61.2 % (42.0-75.0); PLATELET COUNT 187 X10^3/uL (150.0-450.0); RED BLOOD COUNT 3.36 X10^6/uL (3.5-5.4); RED CELL DISTRIBUTION WIDTH 13.4 % (11.6-16.5); WHITE BLOOD COUNT 5.5 X10^3/uL (3.6-10.0)
[2021-03-09 05:30] LABS: ALANINE AMINOTRANSFERASE 61 Units/L (12-78); ALKALINE PHOSPHATASE 82 Units/L (46-116); ASPARTATE AMINO TRANSFERASE 96 Units/L (15-37); BLOOD UREA NITROGEN 10 mg/dL (7-18); CALCIUM 8.2 mg/dL (8.5-10.1); CARBON DIOXIDE 17.6 mmol/L (21-32); CHLORIDE 113 mmol/L (98-107); COR CA(FOR HYPOALB) 9.8 mg/dL (8.5-10.1); CREATININE 0.89 mg/dL (0.55-1.02); SODIUM 142 mmol/L (136-145); TOTAL PROTEIN 5.5 g/dL (6.4-8.2); eGFR NON BLACK RACES > 60 (>60)
[2021-03-09] MEDS: NS + KCL 20 MEQ/L 1,000 ML IV SCH ×3 (05:32→20:09)
[2021-03-09] MEDS: FLAGYL TAB 500 MG PO SCH ×3 (05:32→22:31)
[2021-03-09] MEDS: ROCEPHIN VIAL 1 GRAM 1 G in NS 100 ML IV + SPIKE MINIBAG* 100 ML IV SCH (09:34)
[2021-03-09] MEDS: VSL#3 PO SCH (09:36)
[2021-03-09] MEDS ORDERED: LOMOTIL PO PRN (10:31)
--- NOTE | 2021-03-09 11:53 | PCM.PROG ---
Progress Note - Progress Note for Day of Date of Exam: 03/09/21 - Subjective Subjective: WAS ADMITTED ON 03/06 FOR TREATMENT OF DEHYDRATION, ENTERITIS, AND INTRACTABLE DIARRHEA. TODAY, SHE IS ALERT AND ORIENTED, LYING IN BED ON MORNING ROUNDS. SHE REPORTS ABDOMINAL CRAMPING AND WEAKNESS THIS MORNING. SHE ALSO REPORTS DISCOMFORT FROM THE RECTAL TUBE AND IS ASKING FOR IT TO BE REMOVED. ON EXAMINATION, HEART IS REGULAR IN RATE AND RHYTHM. BILATERAL LUNGS ARE CLEAR TO AUSCULTATION. ABDOMEN IS ROUND, SOFT, AND NOTED WITH DIFFUSE TENDERNESS TO PALPATION. HYPERACTIVE BOWEL SOUNDS NOTED. RECTAL TUBE INTACT. HER VITALS THIS MORNING ARE: 98.4-54-20-97%-96/51. LABS WERE OBTAINED. ABNORMAL LAB VALUES INCLUDE THE FOLLOWING: RBC 3.36, HGB 11.2, HCT 31.4, POTASSIUM 3.2, CHLORIDE 113, CARBON DIOXIDE 17.6, GLUCOSE 103, CALCIUM 8.2, AST 96, TOTAL PROTEIN 5.5, ALBUMIN 2.0. SHE IS POSITIVE FOR SALMONELLA. SHE WAS STARTED ON ROCEPHIN FOR THAT YESTERDAY. SHE WAS SCHEDULED FOR AN EGD, BUT DUE TO SALMONELLA, CHOSE TO HOLD OFF FOR NOW. SHE IS CURRENTLY RECEIVING NS WITH 20MEQ KCL AT 100 ML/HR, ROCEPHIN 1G IV DAILY, FLAGYL 500MG PO TID, XANAX 0.25MG PO BID PRN, LOMOTIL 1 TAB PO QID PRN, THE POTASSIUM AND MAGNESIUM PROTOCOLS, TYLENOL 650MG PO Q6H PRN. TODAY, WE WILL REMOVE THE RECTAL TUBE. WE WILL DECREASE LOMOTIL TO BID PRN AND ADD DICYCLOMINE 20MG PO QID. OTHERWISE, WE WILL CONTINUE WITH CURRENT PLAN OF CARE TODAY. WE PLAN TO FOLLOW UP WITH AM LABS AND CONTINUE TO MONITOR. TIME SPENT ON CLINICAL ASSESSMENT, REVIEWING LABS AND IMAGING, DECISION MAKING, AND DOCUMENTATION GREATER THAN 45 MINUTES. - Past Medical Family Social History Past Med/Fam/Surg Hx: No changes since H&P Allergies: Allergies meperidine [From Demerol] Adverse Reaction (Verified 11/06/20 08:09) CONFUSION patient states she becomes combative - Review of Systems ROS: No change since H&P - Vital Signs and I&O's Vital Signs: Temperature 98.4 F Pulse Rate [Left Brachial] 54 Respiratory Rate 20 Blood Pressure [Left Arm] 96/51 Blood Pressure [Right Arm] 126/75 Blood Pressure 157/73 O2 Sat by Pulse Oximetry 97 Intake and Output: Intake & Output 03/06/21 03/07/21 03/08/21 03/09/21 11:59 11:59 11:59 11:59 Intake Total 1979 3343 / 3343 2819 / 2819 Output Total 1500 / 1500 1500 / 1500 Balance 1979 1843 / 1843 1319 / 1319 - Physical Exam Oriented: Normal Eyes: Normal Ear: Normal Nose: Normal Throat: Normal Respiratory: Normal Cardiovascular: Normal : Normal Auscultation: Bowel Sounds: Increased Palpation: Normal Tenderness: Diffuse, Other (rectal tube with green liquid) Skin: Normal Musculoskeletal: Normal Psychiatric: Normal Mood Description: Calm, Appropriate Affect: Normal Speech Pattern: Clear, Appropriate - Laboratory and Diagnostics Result Diagrams: 03/09/21 04:10 03/09/21 04:10 Labs: 03/06/21 13:06 Stool Stool Culture - Final Salmonella Species 03/06/21 13:06 Stool - Final Laboratory WBC 5.5 X10^3/uL (3.6-10.0) 03/09/21 04:10 RBC 3.36 X10^6/uL (3.5-5.4) L 03/09/21 04:10 Hgb 11.2 g/dL (12.0-16.0) L 03/09/21 04:10 Hct 31.4 % (36.0-47.0) L 03/09/21 04:10 MCV 93.4 fL (80.0-100.0) 03/09/21 04:10 MCH 33.3 pg (27.0-34.0) 03/09/21 04:10 MCHC 35.6 g/dL (33.0-35.0) H 03/09/21 04:10 RDW 13.4 % (11.6-16.5) 03/09/21 04:10 Plt Count 187 X10^3/uL (150.0-450.0) 03/09/21 04:10 MPV 9.0 fL (7.4-11.0) 03/09/21 04:10 Neut % (Auto) 61.2 % (42.0-75.0) 03/09/21 04:10 Lymph % (Auto) 21.4 % (21.0-51.0) 03/09/21 04:10 Zavala % (Auto) 14.9 % (0.0-13.0) H 03/09/21 04:10 Eos % (Auto) 2.1 % (0.9-2.9) 03/09/21 04:10 Baso % (Auto) 0.4 % (0.2-1.0) 03/09/21 04:10 Neut # (Auto) 3.3 x10^3/uL (2.2-4.8) 03/09/21 04:10 Lymph # (Auto) 1.2 X10^3/uL (1.3-2.9) L 03/09/21 04:10 Zavala # (Auto) 0.8 x10^3/uL (0.3-0.8) 03/09/21 04:10 Eos # (Auto) 0.1 x10^3/uL (0.0-0.2) 03/09/21 04:10 Baso # (Auto) 0.0 X10^3/uL (0.0-0.1) 03/09/21 04:10 Absolute Nucleated RBC 0.0 /100WBC 03/09/21 04:10 ESR 14 MM/HOUR (0-20) 03/07/21 14:45 Sodium 142 mmol/L (136-145) 03/09/21 04:10 Corrected Sodium TNP 03/09/21 04:10 Potassium 3.2 mmol/L (3.5-5.1) L 03/09/21 04:10 Chloride 113 mmol/L (98-107) H 03/09/21 04:10 Carbon Dioxide 17.6 mmol/L (21-32) L 03/09/21 04:10 BUN 10 mg/dL (7-18) 03/09/21 04:10 Creatinine 0.89 mg/dL (0.55-1.02) 03/09/21 04:10 Est GFR (MDRD) Af Amer > 60 (>60) 03/09/21 04:10 Est GFR (MDRD) Non-Af > 60 (>60) 03/09/21 04:10 Glucose 103 mg/dL (65-99) H 03/09/21 04:10 POC Glucose (mg/dL) 105 mg/dL (65-99) H 03/07/21 11:31 Calcium 8.2 mg/dL (8.5-10.1) L 03/09/21 04:10 Corrected Calcium 9.8 mg/dL (8.5-10.1) 03/09/21 04:10 Magnesium 1.7 mg/dL (1.7-2.9) 03/09/21 04:10 Total Bilirubin 0.60 mg/dL (0.2-1.0) 03/09/21 04:10 AST 96 Units/L (15-37) H 03/09/21 04:10 ALT 61 Units/L (12-78) 03/09/21 04:10 Alkaline Phosphatase 82 Units/L (46-116) 03/09/21 04:10 C-Reactive Protein 122.40 mg/L (0-3.0) H 03/07/21 14:45 Total Protein 5.5 g/dL (6.4-8.2) L 03/09/21 04:10 Albumin 2.0 g/dL (3.4-5.0) L 03/09/21 04:10 Globulin 3.5 g/dL (2.5-4.5) 03/09/21 04:10 Albumin/Globulin Ratio 0.6 Ratio (1.1-2.1) L 03/09/21 04:10 Amylase 18 Units/L (25-115) L 03/06/21 13:23 Lipase 50 Units/L (73-393) L 03/06/21 13:23 Stool Description 6 g bro/green loose 03/06/21 13:06 Stool Description Fob tube 03/06/21 13:06 Stl Occult Blood (IFOB) Positive (NEGATIVE) A 03/06/21 13:06 Stool for White Cells Positive (NEGATIVE) A 03/06/21 13:06 Stl C. diff Tox B Gene Positive (NEGATIVE) A 03/06/21 13:06 Stl C. diff [id number] Presumptive negative (NEGATIVE) 03/06/21 13:06 C. difficile Toxin A&B Negative (NEGATIVE) 03/06/21 13:06 Cryptosporid parvum Ag Negative (NEGATIVE) 03/06/21 13:06 Giardia lamblia Ag Negative (NEGATIVE) 03/06/21 13:06 - Plan (1) Dehydration Status: Acute Plan: NS WITH 20MEQ KCL AT 100 ML/HR, ROCEPHIN 1G IV DAILY, FLAGYL 500MG PO TID, XANAX 0.25MG PO BID PRN, LOMOTIL 1 TAB PO BID PRN, DICYCLOMINE 20MG PO QID, THE POTASSIUM AND MAGNESIUM PROTOCOLS, TYLENOL 650MG PO Q6H PRN. (2) Enteritis Status: Acute (3) Intractable diarrhea Status: Acute (4) Hypokalemia Status: Acute Plan: supplement as needed (5) Salmonella Status: Acute Plan: Rocephin IV
[2021-03-09] MEDS: BENTYL CAP 10 MG PO SCH ×4 (14:00→20:11)
[2021-03-09] MEDS: LOVENOX INJ 40 MG SYR SC SCH (15:56)
[2021-03-10] MEDS: FLAGYL TAB 500 MG PO SCH (06:15)
[2021-03-10] MEDS: NS + KCL 20 MEQ/L 1,000 ML IV SCH (06:17)
[2021-03-10 06:18] LABS: BASOPHILS % (AUTO) 0.5 % (0.2-1.0); EOSINOPHILS # (AUTO) 0.2 x10^3/uL (0.0-0.2); EOSINOPHILS % (AUTO) 3.1 % (0.9-2.9); HEMATOCRIT 32.8 % (36.0-47.0); HEMOGLOBIN 11.6 g/dL (12.0-16.0); LYMPHOCYTES # (AUTO) 1.6 X10^3/uL (1.3-2.9); LYMPHOCYTES % (AUTO) 24.4 % (21.0-51.0); MEAN CORPUSCULAR HEMOGLOBIN 32.7 pg (27.0-34.0); MEAN CORPUSCULAR HGB CONC 35.3 g/dL (33.0-35.0); MEAN CORPUSCULAR VOLUME 92.6 fL (80.0-100.0); MONOCYTES # (AUTO) 0.7 x10^3/uL (0.3-0.8); MONOCYTES % (AUTO) 11.7 % (0.0-13.0); NEUTROPHILS # (AUTO) 3.9 x10^3/uL (2.2-4.8); NEUTROPHILS % (AUTO) 60.3 % (42.0-75.0); PLATELET COUNT 226 X10^3/uL (150.0-450.0); RED BLOOD COUNT 3.55 X10^6/uL (3.5-5.4); RED CELL DISTRIBUTION WIDTH 13.3 % (11.6-16.5); WHITE BLOOD COUNT 6.4 X10^3/uL (3.6-10.0)
[2021-03-10 06:33] LABS: ALANINE AMINOTRANSFERASE 74 Units/L (12-78); ALBUMIN 2.2 g/dL (3.4-5.0); ALKALINE PHOSPHATASE 95 Units/L (46-116); ASPARTATE AMINO TRANSFERASE 70 Units/L (15-37); BLOOD UREA NITROGEN 6 mg/dL (7-18); CALCIUM 8.1 mg/dL (8.5-10.1); CARBON DIOXIDE 19.8 mmol/L (21-32); CHLORIDE 112 mmol/L (98-107); COR CA(FOR HYPOALB) 9.5 mg/dL (8.5-10.1); CREATININE 0.96 mg/dL (0.55-1.02); SODIUM 143 mmol/L (136-145); TOTAL PROTEIN 5.7 g/dL (6.4-8.2); eGFR NON BLACK RACES > 60 (>60)
[2021-03-10] MEDS: POTASSIUM CHLORIDE LIQ 20 MEQ UDC PO PRN (08:00)
[2021-03-10 09:07] VITALS: BP 137/64
[2021-03-10] MEDS: BENTYL CAP 10 MG PO SCH ×2 (09:35→12:20)
[2021-03-10] MEDS: ROCEPHIN VIAL 1 GRAM 1 G in NS 100 ML IV + SPIKE MINIBAG* 100 ML IV SCH (09:37)
[2021-03-10] MEDS: LOVENOX INJ 40 MG SYR SC SCH (09:37)
[2021-03-10] MEDS: VSL#3 PO SCH (09:37)
[2021-03-10] MEDS ORDERED: VANCOMYCIN HCL 250 MG CAP PO SCH (12:00)
== END 2021-03-10 12:35 | disposition home or self-care (01) | DRG 373 ==
LOC: MED/SURG
PROVIDERS: ADMIT Internal Medicine; ATTEND Internal Medicine
DX: R19.7 Diarrhea, unspecified; R79.89 Other specified abnormal findings of blood chemistry; R79.82 Elevated C-reactive protein (CRP); I10 Essential (primary) hypertension; E03.8 Other specified hypothyroidism; E87.6 Hypokalemia; A02.0 Salmonella enteritis; R11.2 Nausea with vomiting, unspecified; K21.9 Gastro-esophageal reflux disease without esophagitis; A04.72 Enterocolitis due to Clostridium difficile, not specified as recurrent; R94.4 Abnormal results of kidney function studies; E86.0 Dehydration

== ENCOUNTER 2022-03-19 12:12 | Observation (INO) ==
[2022-03-19] MEDS: NS 1,000 ML IV 1,000 ML IV SCH (14:17)
[2022-03-19 14:21] LABS: BASOPHILS % (AUTO) 0.8 % (0.2-1.0); EOSINOPHILS # (AUTO) 0.2 x10^3/uL (0.0-0.2); EOSINOPHILS % (AUTO) 4.2 % (0.9-2.9); HEMATOCRIT 41.3 % (36.0-47.0); HEMOGLOBIN 14.3 g/dL (12.0-16.0); LYMPHOCYTES # (AUTO) 1.6 X10^3/uL (1.3-2.9); LYMPHOCYTES % (AUTO) 28.1 % (21.0-51.0); MEAN CORPUSCULAR HEMOGLOBIN 32.2 pg (27.0-34.0); MEAN CORPUSCULAR HGB CONC 34.6 g/dL (33.0-35.0); MEAN PLATELET VOLUME 9.1 fL (7.4-11.0); MONOCYTES # (AUTO) 0.5 x10^3/uL (0.3-0.8); NEUTROPHILS # (AUTO) 3.5 x10^3/uL (2.2-4.8); NEUTROPHILS % (AUTO) 58.9 % (42.0-75.0); RED BLOOD COUNT 4.44 X10^6/uL (3.5-5.4); RED CELL DISTRIBUTION WIDTH 13.6 % (11.6-16.5); WHITE BLOOD COUNT 5.9 X10^3/uL (3.6-10.0)
[2022-03-19 14:28] VITALS: BMI 32.9
[2022-03-19 14:42] LABS: ALANINE AMINOTRANSFERASE 22 Units/L (12-78); ALBUMIN 3.8 g/dL (3.4-5.0); ALKALINE PHOSPHATASE 78 Units/L (46-116); ASPARTATE AMINO TRANSFERASE 20 Units/L (15-37); BLOOD UREA NITROGEN 22 mg/dL (7-18); CALCIUM 9.3 mg/dL (8.5-10.1); CARBON DIOXIDE 30.4 mmol/L (21-32); CHLORIDE 103 mmol/L (98-107); CKMB % 1.1 % (<4); CREATINE KINASE 88 Units/L (26-192); CREATINE KINASE MB < 1.0 ng/mL (0-4.0); CREATININE 1.13 mg/dL (0.55-1.02); SODIUM 141 mmol/L (136-145); eGFR NON BLACK RACES 51 (>60)
--- NOTE | 2022-03-19 14:58 | RAD ---
HISTORYChest pain SOBSTUDYPortable AP [id number] ed normal heart size and contour with clear lungs and pleural spaces.IMPRESSIONNo change; no acute chest abnormality.Electronically signed by: AIDAN TORRES (Mar 19, 2022 14:56:06)
[2022-03-19] MEDS ORDERED: MORPHINE SULFATE INJ 2 MG INJ IVP PRN (15:45)
[2022-03-19] MEDS: PEPCID 20 MG VIAL 20 MG in NS 50 ML IV 50 ML IV SCH ×2 (16:30→20:20)
[2022-03-19] MEDS: PROTONIX INJ 40 MG VIAL IVP SCH ×2 (16:30→20:25)
[2022-03-19] MEDS ORDERED: BENTYL CAP 10 MG PO PRN (17:44)
[2022-03-19] MEDS ORDERED: ROBITUSSIN AC PO PRN (17:44)
[2022-03-19] MEDS ORDERED: MICRO K EXTEN CAP 10 MEQ PO SCH (18:00)
[2022-03-19] MEDS ORDERED: KLOR-CON PO PRN (20:08)
[2022-03-19] MEDS ORDERED: K-DUR TAB 20 MEQ PO ONE (20:12)
[2022-03-19] MEDS: NexIUM PO SCH (20:22)
[2022-03-19] MEDS: K-DUR TAB 20 MEQ PO PRN (20:25)
[2022-03-19 20:26] LABS: CREATINE KINASE 50 Units/L (26-192); CREATINE KINASE MB < 1.0 ng/mL (0-4.0)
[2022-03-19] MEDS ORDERED: HYDROCHLOROTHIAZIDE 12.5 MG CAP PO SCH (21:00)
[2022-03-19] MEDS ORDERED: NexIUM PO SCH (21:00)
[2022-03-19] MEDS ORDERED: RESTORIL CAP 30 MG PO SCH (21:00)
[2022-03-19] MEDS ORDERED: RESTORIL CAP 15 MG PO SCH (21:00)
[2022-03-19] MEDS ORDERED: LIPITOR TAB 10 MG PO SCH (21:00)
[2022-03-19] MEDS ORDERED: ZANAFLEX PO SCH ×2 (21:00)
[2022-03-19] MEDS ORDERED: PriLOSEC PO SCH (21:00)
[2022-03-20 02:13] LABS: CREATINE KINASE 49 Units/L (26-192); CREATINE KINASE MB < 1.0 ng/mL (0-4.0)
[2022-03-20] MEDS: NS 1,000 ML IV 1,000 ML IV SCH (04:26)
[2022-03-20 05:53] LABS: BASOPHILS # (AUTO) 0.1 X10^3/uL (0.0-0.1); BASOPHILS % (AUTO) 1.1 % (0.2-1.0); EOSINOPHILS # (AUTO) 0.2 x10^3/uL (0.0-0.2); EOSINOPHILS % (AUTO) 3.5 % (0.9-2.9); HEMATOCRIT 35.7 % (36.0-47.0); HEMOGLOBIN 12.5 g/dL (12.0-16.0); LYMPHOCYTES # (AUTO) 1.9 X10^3/uL (1.3-2.9); LYMPHOCYTES % (AUTO) 36.5 % (21.0-51.0); MEAN CORPUSCULAR HEMOGLOBIN 32.6 pg (27.0-34.0); MEAN CORPUSCULAR HGB CONC 35.1 g/dL (33.0-35.0); MONOCYTES # (AUTO) 0.5 x10^3/uL (0.3-0.8); MONOCYTES % (AUTO) 9.9 % (0.0-13.0); NEUTROPHILS # (AUTO) 2.6 x10^3/uL (2.2-4.8); RED BLOOD COUNT 3.84 X10^6/uL (3.5-5.4); RED CELL DISTRIBUTION WIDTH 13.2 % (11.6-16.5); WHITE BLOOD COUNT 5.3 X10^3/uL (3.6-10.0)
--- NOTE | 2022-03-20 06:02 | RAD ---
HISTORYChest pain, shortness of breathSTUDYChest AP [id number]/12/2022FINDINGSHear t size is normal. [place] are normal. Lung brewer are clear. No pleural effusions are identified. Bony thorax is unremarkable.IMPRESSIONNo significant abnormality identifiedElectronically signed by: JORDAN EL (Mar 20, 2022 06:00:50)
[2022-03-20 06:11] LABS: ALANINE AMINOTRANSFERASE 22 Units/L (12-78); ALKALINE PHOSPHATASE 78 Units/L (46-116); ASPARTATE AMINO TRANSFERASE 11 Units/L (15-37); BLOOD UREA NITROGEN 23 mg/dL (7-18); CALCIUM 8.5 mg/dL (8.5-10.1); CARBON DIOXIDE 28.3 mmol/L (21-32); CHLORIDE 105 mmol/L (98-107); COR CA(FOR HYPOALB) 9.3 mg/dL (8.5-10.1); CREATININE 1.26 mg/dL (0.55-1.02); MAGNESIUM 1.9 mg/dL (1.7-2.9); SODIUM 141 mmol/L (136-145); TOTAL PROTEIN 6.5 g/dL (6.4-8.2); eGFR NON BLACK RACES 45 (>60)
[2022-03-20] MEDS ORDERED: SYNTHROID 25 mcg TAB PO SCH ×2 (06:30→09:00)
[2022-03-20] MEDS: K-DUR TAB 20 MEQ PO PRN (06:44)
[2022-03-20 07:24] LABS: CHOL/HDL RATIO 3.6 (0.0-5.0)
[2022-03-20] MEDS: NexIUM PO SCH (08:06)
[2022-03-20] MEDS: PROTONIX INJ 40 MG VIAL IVP SCH (08:06)
[2022-03-20] MEDS: PEPCID 20 MG VIAL 20 MG in NS 50 ML IV 50 ML IV SCH (08:06)
[2022-03-20] MEDS ORDERED: COZAAR PO SCH ×2 (09:00)
[2022-03-20] MEDS ORDERED: MICRO K EXTEN CAP 10 MEQ PO SCH (09:00)
[2022-03-20] MEDS ORDERED: ASPIRIN PO SCH (09:00)
[2022-03-20] MEDS ORDERED: NS 100 ML IV 100 ML ONE (10:22)
[2022-03-20] MEDS ORDERED: LOVENOX INJ 40 MG SYR SC SCH (11:00)
--- NOTE | 2022-03-20 12:01 | CT ---
HISTORYChest pain, shortness of breathSTUDYCTA chest with contrast for pulmonary embolusTechnique: Axial post-contrast images with coronal and sagittal reformats. Three dimensional maximum intensity projection images were obtained and evaluated. Dose reduction procedures were used with mA/kv adjusted for body size.COMPARISONNoneFINDINGSThere is no evidence for acute pulmonary thromboembolic disease. Examination of the mediastinum demonstrated no evidence for mediastinal masses, enlarged mediastinal or enlarged hilar adenopathy or significant aortic abnormality. No pleural effusions are identified. No chest wall or axillary abnormality is identified. Those portions of the upper abdominal organs visualized were within normal limits to the limitations of early arterial injection timing. Examination of the lung brewer demonstrated no evidence for masses, alveolar infiltrates, areas of consolidation, peribronchial thickening, or bronchiectasis. Bilateral upper lobe 2 mm subpleural noncalcified pulmonary nodules are identified. Follow-up chest CT in 1 year is recommended.IMPRESSIONNo evidence for acute pulmonary thromboembolic diseaseNo acute infiltratesBilateral peripheral upper lobe 2 mm subpleural noncalcified pulmonary nodules which should be followed with chest CT in 1 year.Electronically signed by: JORDAN EL (Mar 20, 2022 11:59:22)
[2022-03-20 12:11] VITALS: BP 146/63
--- NOTE | 2022-04-09 13:08 | DR.CARTERS ---
Short Stay Summary - Admission Date Date of Admission: 03/19/22 - Discharge Date Discharge Date: 03/20/22 - Admission Diagnoses (1) Shortness of breath Status: Acute (2) HTN (hypertension) Status: Acute (3) Chest pain Status: Acute - Hospital Course Hospital Course: IS A 66 YEAR OLD PATIENT OF OURS. SHE PRESENTED TO THE OFFICE WITH COMPLAINTS OF CHEST PAIN. CHEST PAIN WAS DESCRIBED INTERMITTENT AND TIGHTNESS WITH OCCASIONAL RADIATION TO THE RIGHT SIDE OF NECK. PATIENT REPORTED THAT BELCHING OFTEN RELIEVED THE PAIN. SHE REPORTED THAT PAIN HAD BEEN PRESENT ON AND OFF FOR AROUND TWO MONTHS, BUT HAS BEEN PERSISTENT SINCE ONE DAY PRIOR (03/18/22). SHE ALSO REPORTED ASSOCIATED SHORTNESS OF BREATH AND SWELLING OF LOWER EXTREMITIES. SHE HAS BEEN TAKING LASIX 40MG DAILY FOR SWELLING. HER PMH INCLUDES: ANGINA, HTN, GED, PUD, HEPATITIS C, DIVERTICULOSIS, CONSTIPATION, CHRONIC UTIs, ARTHRITIS, HYPOTHYROIDISM, ANXIETY, DEPRESSION, CHOLECYSTECTOMY, TONSILLECTOMY, AND LEFT KNEE REPLACEMENT. SHE HAD AN ECHO ON 02/25/22 WHICH REVEALED AN EJECTION FRACTION OF 58%, MILD AORTIC VALVE LEAFLET THICKENING, RVSP 15mmHg. SHE IS FOLLOWED OUTPATIENT BY , [employer]. DECISION WAS MADE TO ADMIT PATIENT TO THE HOSPITAL FOR FURTHER EVALUATION AND TREATMENT OF CHEST PAIN, SOB, ELEVATED BLOOD PRESSURE. ON ARRIVAL, VITALS WERE: 98.1-62-24-99%-137/67. LABS WERE OBTAINED. WBC 5.9, RBC 4.44, HGB 14.3, HCT 41.3, D-DIMER 1.16, SODIUM 141, POTASSIUM 3.5, CHLORIDE 103, BUN 22, CREATININE 1.13, GLUCOSE 94, AST 20, ALT 22, ALK PHOS 78, BNP 203, ALBUMIN 3.8. CARDIAC ENZYMES WERE WITHIN NORMAL LIMITS. COVID, INFLUENZA, AND RSV NEGATIVE. EKG REVEALED: NORMAL SINUS RHYTHM WITH HR 60. CHEST XRAY WAS OBTAINED AND REVEALED: NO ACUTE CHEST ABNORMALITY. CHEST CTA OBTAINED AND REVEALED: No evidence for acute pulmonary thromboembolic disease. No acute infiltrates. Bilateral peripheral upper lobe 2 mm subpleural noncalcified pulmonary nodules which should be followed with chest CT in 1 year. SHE WAS STARTED ON NORMAL SALINE AT 50 ML/HR, PEPCID 20MG IV Q12H, PROTONIX 40MG IV BID, ATORVASTATIN 20MG HS, MORPHINE 2MG IV Q4H PRN, ECOTRIN 325MG PO DAILY, THE POTASSIUM PROTOCOL, AND HER HOME MEDICATIONS WERE RESUMED. ON THE MORNING FOLLOWING ADMISSION, PATIENT IS ALERT AND ORIENTED, LYING IN BED. SHE DENIES CHEST PAIN OR CURRENT COMPLAINTS. ON EXAMINATION, HEART WAS REGULAR IN RATE AND RHYTHM. BILATERAL LUNGS CLEAR TO AUSCULTATION. ABDOMEN ROUND, SOFT, AND NON-TENDER WITH NORMAL BOWEL SOUNDS NOTED IN ALL QUADRANTS. NO UPPER OR LOWER EXTREMITY EDEMA NOTED. HER VITALS ON MORNING ROUNDS WERE: 98.1-60-18-98%-125/56. LABS WERE OBTAINED. WBC 5.3, HGB 12.5, HCT 35.7, SODIUM 141, POTASSIUM 3.2, CHLORIDE 105, BUN 23, CREATININE 1.26, GLUCOSE 101, AST 11, ALT 22, ALK PHOS 78, BNP 152, TOTAL PROTEIN 6.5, ALBUMIN 3.0, TRIGLYCERIDES 172, CHOLESTEROL 199, LDL 110, HDL 55. CARDIAC ENZYMES WITHIN NORMAL LIMITS. NO CHANGES NOTED TO EKGS. , [employer], SAW PATIENT THIS MORNING AND PLANS TO DO AN OUTPATIENT NUCLEAR STRESS TEST NEXT WEEK. WE PLANNED FOR DISCHARGE. INSTRUCTIONS FOR MEDICATIONS AND FOLLOW-UP WERE DISCUSSED WITH PATIENT AND SPOUSE. THEY VERBALIZED UNDERSTANDING OF ALL ORDERS. SHE WAS DISCHARGED WITH PRESCRIPTIONS FOR ECOTRIN 325MG PO DAILY AND ATORVASTATIN 20MG P O HS. SHE WAS ADVISED TO FOLLOW-UP IN THE OFFICE ON 03/27/22 AND WITH WITHIN THE WEEK. SHE WAS DISCHARGED HOME WITH SPOUSE IN STABLE CONDITION. TIME SPENT ON CLINICAL ASSESSMENT, REVIWING LABS AND IMAGING, DECISION MAKING, DISCHARGE INSTRUCTIONS, PREPARING DISCHARGE PAPERS, AND DOCUMENTATION GREATER THAN 75 MINUTES. - Discharge Medications Discharge Medications: Home Medication List codeine 10 mg-guaifenesin 100 mg/5 mL oral liquid 1 - 2 teaspoon PO Q4-6H PRN cough 03/19/22 [History] dicyclomine 20 mg tablet 1 tab PO Q6H PRN abdominal pain 03/19/22 [History] esomeprazole magnesium 40 mg capsule,delayed release 1 cap PO BID 03/19/22 [History] potassium chloride 10 mEq tablet,extended release 1 tab PO QDAY 03/19/22 [History] aspirin 325 mg tablet 325 mg PO DAILY #30 tabs 03/20/22 [Rx] atorvastatin 10 mg tablet 20 mg PO HS #30 tabs 03/20/22 [Rx] Prescriptions: aspirin Son Soto atorvastatin Son Soto - Discharge Plan Disposition: 01 HOME, SELF-CARE Condition: Stable Prescriptions: aspirin 325 mg PO DAILY #30 tabs atorvastatin 20 mg PO HS #30 tabs - Follow up/Referrals Follow up/Referrals: Son Soto [Primary Care Provider] - 03/27/22 2:10 pm (Sadi Schmidt [STAFF PHYSICIAN] - 1 WEEK - Instructions Instructions: How to Take Your Blood Pressure, [id number], Nonspecific Chest Pain, Adult, [id number], Hypertension, Adult, [id number], Chest Wall Pain Additional Instructions: DIET TOLERATED. ACTIVITY TOLERATED. Forms: Excuse From Work or School, Precautions for COVID19, [facility], Patient Portal, Social Distancing
== END 2022-03-20 14:35 | disposition home or self-care (01) ==
LOC: ICU → MED/SURG 22:08
PROVIDERS: ADMIT Internal Medicine; ATTEND Internal Medicine
DX: E03.8 Other specified hypothyroidism; R06.02 Shortness of breath; F41.8 Other specified anxiety disorders; R07.89 Other chest pain; I10 Essential (primary) hypertension; F32.89 Other specified depressive episodes; K21.9 Gastro-esophageal reflux disease without esophagitis; Z20.822 Contact with and (suspected) exposure to COVID-19; R60.0 Localized edema